=== PATIENT | male | born 2000 | race Caucasian/White ===

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

== ENCOUNTER 2021-07-17 06:36 | Emergency (ER) | payer OTHER ==
[~2021-07-17] VITALS: Ht 182.9 cm; Wt 61.0 kg
[~2021-07-17 06:36] MED LIST changes: +MEDDOSEPAK PO
[2021-07-17 07:50] VITALS: BP 121/72
== END 2021-07-17 07:50 | disposition home or self-care (01) ==
LOC: ED 06:36
DX: J06.9 Acute upper respiratory infection, unspecified (principal); Z20.822 Contact with and (suspected) exposure to COVID-19

== ENCOUNTER 2024-08-27 12:37 | Emergency (ER) | payer SELFPAY ==
[~2024-08-27] VITALS: Ht 182.9 cm; Wt 63.5 kg
[2024-08-27] VITALS (7 sets, daily range): BP systolic 102–121; BP diastolic 47–65
[~2024-08-27 12:37] MED LIST changes: +ZOFRAN4 MG/TAB PO; +ZPAK PO
[2024-08-27] MEDS ORDERED: NAPROXEN500 MG PO (13:56)
== END 2024-08-27 14:14 | disposition home or self-care (01) | DRG 605 ==
LOC: ED 12:37
DX: S60.222A Contusion of left hand, initial encounter (principal); S60.512A Abrasion of left hand, initial encounter; W23.0XXA Caught, crushed, jammed, or pinched between moving objects, initial encounter; Y99.0 Civilian activity done for income or pay